=== PATIENT | female | born 1995 | race Caucasian/White ===

== ENCOUNTER 2020-06-09 05:15 | Inpatient (IN) | payer OTHER ==
[~2020-06-09] VITALS: Ht 175.3 cm; Wt 112.9 kg
[~2020-06-09 05:15] MED LIST: IBUPROFEN600 MG PO
[2020-06-09 05:47] LABS: HEMOGLOBIN 11.9 gm/dl (12.3-15.3); RED BLOOD COUNT 3.59 M/UL (4.00-5.10); WHITE BLOOD COUNT 15.1 K/UL (4.5-11.0)
[2020-06-09] MEDS ORDERED: FAMOTIDINE20 MG PO (06:14)
[2020-06-09] MEDS ORDERED: DOCUSATE SODIU100 MG PO (09:13)
[2020-06-09] MEDS ORDERED: IBUPROFEN600 MG PO (09:13)
[2020-06-09] MEDS ORDERED: HYDROCODON-ACE1 EAC4 PO (09:13)
[2020-06-10 06:47] LABS: HEMOGLOBIN 11.1 gm/dl (12.3-15.3)
== END 2020-06-10 16:20 | disposition home or self-care (01) | DRG 788 ==
LOC: OB 05:15
PROVIDERS: ADMIT Obstetrics & Gynecology
PROC: 3E0234Z Introduction of Serum, Toxoid and Vaccine into Muscle, Percutaneous Approach (ICD-10-PCS; 2020-06-09)
PROC: 10D00Z1 Extraction of Products of Conception, Low, Open Approach (ICD-10-PCS; principal; 2020-06-09 07:30)
DX: O34.211 Maternal care for low transverse scar from previous cesarean delivery (principal); N85.8 Other specified noninflammatory disorders of uterus; Z3A.39 39 weeks gestation of pregnancy; Z37.0 Single live birth; O99.334 Smoking (tobacco) complicating childbirth; F17.210 Nicotine dependence, cigarettes, uncomplicated; Z23 Encounter for immunization
CPT/HCPCS: 36415; 81001; 85014; 85018; 85025; 90471; 90472; 90715; C9113; J0690; J1885; J2274; J2405; J2590; J3010; J7120